=== PATIENT | male | born 1995 | race African-American/Black ===

== ENCOUNTER 2021-03-02 00:11 | Emergency (ER) | payer OTHER ==
[~2021-03-02] VITALS: Ht 177.8 cm; Wt 63.6 kg
[2021-03-02] MEDS ORDERED: IBUPROFEN 600 MG TABLET PO ONE (02:15)
[2021-03-02] MEDS ORDERED: PERTUSS(ACELL),DIPH,TET VAC/PF 0.5 ML SYRINGE IM. ONE (02:15)
[2021-03-02] MEDS ORDERED: LIDOCAINE 1% 10 ML VIAL ID ONE (02:15)
[2021-03-02] MEDS ORDERED: SODIUM CHLORIDE 0.9% 250 ML IRRIG SOLUTION BOTTLE IRRIG ONE (02:15)
[2021-03-02 04:00] VITALS: BP 134/74
[2021-03-02] MEDS ORDERED: CEPHALEXIN MONOHYDRATE 500 MG CAPSULE PO ONE (04:00)
== END 2021-03-02 04:22 ==
LOC: EMS 00:14
DX: S61.412A Laceration without foreign body of left hand, initial encounter (principal); S80.812A Abrasion, left lower leg, initial encounter; W19.XXXA Unspecified fall, initial encounter; Y93.89 Activity, other specified; Y92.89 Other specified places as the place of occurrence of the external cause; Y99.8 Other external cause status
CPT/HCPCS: 12002; 90471; 90715; 99283; J3490